=== PATIENT | male | born 1990 | race Caucasian/White ===

== ENCOUNTER 2018-02-05 19:05 | Emergency (ER) | payer OTHER ==
[~2018-02-05] VITALS: Ht 6290.3 cm; Wt 105.0 kg
[2018-02-05] MEDS ORDERED: TETanus/Pertussis (Acell)/Diphther VAC/PF (Tdap-Adult) 0.5ml syringe IMVAC ONE (20:00)
[2018-02-05 20:41] LABS: BASOPHILS % (AUTO) 0.4 % (0-1); EOSINOPHILS # (AUTO) 0.3 X10'3 (0-0.9); EOSINOPHILS % (AUTO) 2.2 % (0-6); HEMATOCRIT 46.3 % (42.0-52.0); HEMOGLOBIN 15.8 g/dl (14.0-17.9); LYMPHOCYTES # (AUTO) 2.8 X10'3 (1.1-4.8); LYMPHOCYTES % (AUTO) 22.5 % (21-51); MEAN CORPUSCULAR HEMOGLOBIN 30.7 PG (27.0-31.0); MEAN CORPUSCULAR VOLUME 90.2 FL (78-98); MEAN PLATELET VOLUME 6.8 FL (7.4-10.4); MONOCYTES # (AUTO) 0.8 X10'3 (0-0.9); MONOCYTES % (AUTO) 6.8 % (2-12); NEUTROPHILS # (AUTO) 8.5 X10'3 (1.8-7.7); NEUTROPHILS % (AUTO) 68.1 % (42-75); PLATELET COUNT 392 X10'3 (140-440); RED BLOOD COUNT 5.14 X10'6 (4.70-6.10); WHITE BLOOD COUNT 12.5 X10'3 (4.5-11.0)
[2018-02-05 20:56] LABS: ALANINE AMINOTRANSFERASE 54 U/L (12-78); ALBUMIN 3.4 G/DL (3.4-5.0); ALBUMIN/GLOBULIN RATIO 0.9 (1.1-1.5); ALKALINE PHOSPHATASE 81 IU/L (46-116); ANION GAP 7 (8-16); ASPARTATE AMINO TRANSFERASE 16 U/L (10-37); BILIRUBIN,TOTAL 0.1 MG/DL (0.1-1.0); BLOOD UREA NITROGEN 14 MG/DL (7-18); BUN/CREATININE RATIO 12.6 (5.4-32.0); CALCIUM 9.1 MG/DL (8.5-10.1); CHLORIDE 104 MMOL/L (99-107); CREATININE 1.11 MG/DL (0.60-1.10); GLUCOSE 117 MG/DL (70-104); SODIUM 140 MMOL/L (135-145); TOTAL CARBON DIOXIDE 29.1 MMOL/L (24-32); TOTAL PROTEIN 7.3 G/DL (6.4-8.2); eGFR 79 ML/MIN
[2018-02-05] MEDS ORDERED: LIDOcaine 1% 30ml preserv. free vial IJ ONE (22:10)
[2018-02-05 23:32] LABS: CLARITY,URINE CLEAR (Clear); COLOR,URINE YELLOW (Yellow); GLUCOSE, URINE NEGATIVE (Neg); KETONES,URINE NEGATIVE (Neg); LEUKOCYTE ESTERASE ,URINE NEGATIVE (Neg); NITRITES, URINE NEGATIVE (Neg); OCCULT BLOOD,URINE NEGATIVE (Neg); PROTEIN,URINE NEGATIVE (Neg); UROBILINOGEN,URINE 0.2 E.U/dL (0.2-1.0)
[2018-02-05 23:33] LABS: UA COLLECTION TYPE CLN CATCH MIDSTREAM
[2018-02-06 00:09] LABS: URINE AMPHETAMINE SCREEN NEGATIVE (Neg); URINE BARBITUATE SCREEN NEGATIVE (Neg); URINE BENZODIAZEPINES SCREEN NEGATIVE (Neg); URINE CANNABINOID SCREEN NEGATIVE (Neg); URINE COCAINE SCREEN NEGATIVE (Neg); URINE METHADONE SCREEN NEGATIVE (Neg); URINE OPIATE SCREEN NEGATIVE (Neg); URINE PHENCYCLIDINE SCREEN NEGATIVE (Neg)
[2018-02-06] MEDS ORDERED: NO HOME MEDS (07:54)
[2018-02-06] MEDS ORDERED: aripiprazole 5mg tablet PO SCH ×2 (21:00→22:15)
[2018-02-07] MEDS ORDERED: ibuprofen 200mg tablet PO ONE (12:45)
[2018-02-07 17:02] VITALS: BP 137/85
[2018-02-07] MEDS ORDERED: aripiprazole 5mg tablet PO SCH (21:00)
== END 2018-02-07 20:01 ==
LOC: ER 19:06
DX: S51.811A Laceration without foreign body of right forearm, initial encounter (principal); F32.9 Major depressive disorder, single episode, unspecified; Z88.8 Allergy status to other drugs, medicaments and biological substances; X78.8XXA Intentional self-harm by other sharp object, initial encounter; Y93.89 Activity, other specified; Y92.89 Other specified places as the place of occurrence of the external cause; Y99.8 Other external cause status
CPT/HCPCS: 12002; 36415; 80053; 80305; 81003; 85025; 90471; 90715; 99285; A6255; A6449; J3490

== ENCOUNTER 2018-09-02 17:44 | Emergency (ER) | payer MEDICAID ==
[~2018-09-02] VITALS: Ht 190.5 cm; Wt 104.5 kg
[~2018-09-02 17:44] MED LIST: NO HOME MEDS
[2018-09-02] MEDS ORDERED: BUPIVAcaine/PF 2.5 mg/ml (0.25%) 30ml vial IJ ONE (18:15)
[2018-09-02] MEDS ORDERED: BUPIVAcaine/PF 2.5mg/ml (0.25%) 10ml vial IJ ONE (18:25)
[2018-09-02] MEDS ORDERED: SULF1TAB49 PO (18:39)
[2018-09-02 20:19] VITALS: BP 131/77
== END 2018-09-02 20:20 | disposition home or self-care (01) ==
LOC: ER 17:45
DX: L02.511 Cutaneous abscess of right hand (principal); Z88.1 Allergy status to other antibiotic agents; Z56.0 Unemployment, unspecified
CPT/HCPCS: 26010; 36415; 87070; 99284; J3490

== ENCOUNTER 2018-09-07 10:39 | Emergency (ER) | payer MEDICAID ==
[~2018-09-07] VITALS: Ht 182.9 cm; Wt 100.0 kg
[~2018-09-07 10:39] MED LIST changes: +SULF1TAB49 PO
[2018-09-07 10:47] VITALS: BP 133/72
[2018-09-07] MEDS ORDERED: clindamycin phosphate 150mg/ml inj. IM ONE (11:20)
== END 2018-09-07 11:38 | disposition home or self-care (01) ==
LOC: ER 10:40
DX: M79.644 Pain in right finger(s) (principal); Z56.0 Unemployment, unspecified; Z88.8 Allergy status to other drugs, medicaments and biological substances
CPT/HCPCS: 29130; 82948; 96372; 99283; J3490

== ENCOUNTER 2018-09-12 11:46 | Emergency (ER) | payer MEDICAID ==
[~2018-09-12] VITALS: Ht 190.5 cm; Wt 106.4 kg
[2018-09-12] MEDS ORDERED: DOXY100C43 PO (12:18)
[2018-09-12] MEDS ORDERED: NAPR-56 PO (12:40)
[2018-09-12 13:11] VITALS: BP 133/76
== END 2018-09-12 13:15 | disposition home or self-care (01) ==
LOC: ER 11:47
DX: L03.011 Cellulitis of right finger (principal); Z56.0 Unemployment, unspecified; Z88.1 Allergy status to other antibiotic agents
CPT/HCPCS: 99283